=== PATIENT | male | born 1970 | race Caucasian/White ===

== ENCOUNTER → 2020-10-06 00:21 | Outpatient (CLI) | payer OTHER, SELFPAY ==
[2020-10-06 19:36] LABS: SARS-CoV-2 RNA PCR Negative
== END ==
PROVIDERS: PCP Family Medicine; Visit Provider Internal Medicine Gastroenterology
DX: Z20.822 Contact with and (suspected) exposure to COVID-19 (principal)
CPT/HCPCS: C9803; U0003; U0005

== ENCOUNTER 2020-10-09 02:06 | Day surgery (SDC) | payer OTHER, SELFPAY ==
[2020-09-29 11:51] VITALS: BMI 25.2
[2020-10-09 12:21] VITALS: BP 122/94; PULSE 113; RESP 16; TEMP 36.8; O2SAT 98; BMI 23.7
[2020-10-09] MEDS: LACTATED RINGERS 1,000 ML 150 ML IV CONT (12:25)
--- NOTE | 2020-10-09 13:01 | WPDANESEPPF ---
Anes - Initial Pre Proc Eval Procedure: Operation Date: 10/09/20 13:30 Proposed Procedures p Screening Colonoscopy - Ryan Araujo MD Date/Time: 10/09/20 13:01 Surgeon: Ryan Araujo MD Pre Op Diagnosis: neoplasm screening Patient Data Age: 50 Gender: M Height: 5 ft 11 in Weight: 77.1 kg Last Vital Signs Temp 98.3 F 10/09/20 12:21 Pulse 113 H 10/09/20 12:21 Resp 16 10/09/20 12:21 BP 122/94 H 10/09/20 12:21 Pulse Ox 98 10/09/20 12:21 Allergies Allergy/AdvReac Type Severity Reaction Status Date / Time No Known Allergies Allergy Verified 10/09/20 12:18 Home Medications Medication Instructions Recorded Confirmed Type sertraline 25 mg tablet 25 mg PO DAILY #90 tablet 07/20/20 10/09/20 Rx atorvastatin 20 mg tablet 20 mg PO DAILY #90 tablet 09/07/20 10/09/20 Rx Patient hx anesthesia problems: none Family hx anesthesia problems: none PMFSH Past Medical History Medical History (Updated 07/20/20 @ 15:18 by Corin Plata DO) ACL tear (~04/2008) ACL tear (~1996) Surgical History Surgical History H/O vasectomy (~12/2010) Family History Family History Grandparent Family history of glaucoma Family history of coronary artery disease Sibling Hypertension Family history of elevated blood lipids Father Family history of elevated blood lipids, Onset Age: 54 Family history of cardiovascular disease, Onset Age: 54 Acute myocardial infarction, Onset Age: 54 Family history of coronary artery disease, Onset Age: 54 Mother Family history of malignant neoplasm of breast in first degree relative Social History Social History Smoking status: Never smoker Smokeless tobacco user: chewing tobacco Alcohol intake: current Drinks per week: 9 Living arrangements: with family Gender identity (if verbalized by the patient): Male Spiritual care concerns: No Anes - Eval Final PreProcedure Day of Procedure 10/09/20 13:01 Patient weight: normal Heart: regular rate and rhythm Lungs: clear to auscultation Airway: Mallampati scale class II Neurological: alert and oriented Last oral intake: >/= 8 hours ASA classification: II Emergent: no Anesthetic plan: proceed Anesthesia type and monitoring: general GIVS and standard monitoring Informed Consent: The patient's anesthetic plan and its attendant risks and benefits were discussed with the patient/family/POA. Questions were solicited and answers provided to the satisfaction of the patient/family/POA.
--- NOTE | 2020-10-09 13:17 | PM.HPGS ---
History of Present Illness History of Present Illness Consent: Risks, benefits, and alternatives have been discussed and questions answered. Patient agrees to proceed with procedure. Chief complaint: neoplasm screening Narrative: Len Disla is a 50 year old male here for first screening colonoscopy Review of Systems Constitutional: Constitutional: Denies headache(s) and Denies weakness Eyes: Eyes: Denies blurry vision ENT: Reports Normal hearing present, Denies headache(s) and Denies neck pain Cardiovascular: Cardiovascular: Denies chest pain and Denies dyspnea Respiratory: Respiratory: Denies dyspnea Gastrointestinal: Gastrointestinal: Reports no additional gastrointestinal complaints Genitourinary: Genitourinary: Denies dysuria Musculoskeletal: Musculoskeletal: Denies neck pain Integumentary/Breasts: Skin/Breast: Denies dry skin Neurologic: Reports Normal hearing present, Denies headache(s) and Denies weakness Psychiatric: Psychiatric: Denies anxiety Endocrine: Endocrine: Denies change in body appearance Hematologic/Lymphatic: Hematologic/Lymphatic: Denies easy bleeding Allergic/Immunologic: Allergic/Immunologic: Denies urticaria [facility] Past Medical History Medical History (Updated 07/20/20 @ 15:18 by Corin Plata DO) ACL tear (~04/2008) ACL tear (~1996) Surgical History Surgical History H/O vasectomy (~12/2010) Family History Family History Grandparent Family history of glaucoma Family history of coronary artery disease Sibling Hypertension Family history of elevated blood lipids Father Family history of elevated blood lipids, Onset Age: 54 Family history of cardiovascular disease, Onset Age: 54 Acute myocardial infarction, Onset Age: 54 Family history of coronary artery disease, Onset Age: 54 Mother Family history of malignant neoplasm of breast in first degree relative Social History Social History Smoking status: Never smoker Smokeless tobacco user: chewing tobacco Alcohol intake: current Drinks per week: 9 Living arrangements: with family Gender identity (if verbalized by the patient): Male Spiritual care concerns: No Meds Home Medications and Allergies Home Medications Medication Instructions Recorded Confirmed Type sertraline 25 mg tablet 25 mg PO DAILY #90 tablet 07/20/20 10/09/20 Rx atorvastatin 20 mg tablet 20 mg PO DAILY #90 tablet 09/07/20 10/09/20 Rx Allergies Allergy/AdvReac Type Severity Reaction Status Date / Time No Known Allergies Allergy Verified 10/09/20 12:18 Vital Signs Vital Signs - 24 hr 10/09/20 12:21 Temperature 98.3 F Pulse Rate 113 H Respiratory Rate 16 Blood Pressure 122/94 H Pulse Oximetry 98 Exam Const: General: comfortable and no acute distress HENMT: General nose exam: Normal nares present Eyes: General: appearance normal, both eyes and all related structures Neck: Neck: no JVD Resp: Auscultation: clear to auscultation bilaterally Cardio: Rate: regular rate Rhythm: regular rhythm GI: Inspection: non-distended GI Palp: Yes Soft to palpation Skin: General skin exam: normal color Neuro: General: gait normal Speech: normal speech Extrem: General: normal to inspection Psych: Mental Status: mental status grossly normal Assessment and Plan Assessment and plan (1) Screening for colon cancer: Code(s): Z12.11 - Encounter for screening for malignant neoplasm of colon Status: Acute Assessment and Plan: colonoscopy
[2020-10-09 13:40] VITALS: BP 108/61; PULSE 69; RESP 17; O2SAT 98
[2020-10-09 13:50] VITALS: BP 105/62; PULSE 74; RESP 19; O2SAT 100
[2020-10-09 14:00] VITALS: BP 105/60; PULSE 75; RESP 19; O2SAT 100
== END 2020-10-09 14:25 | disposition home or self-care (01) ==
PROVIDERS: PCP Family Medicine; Visit Provider Internal Medicine Gastroenterology
PROC: 0DJD8ZZ Inspection of Lower Intestinal Tract, Via Natural or Artificial Opening Endoscopic (ICD-10-PCS; CPT 45378; principal; 2020-10-09 13:30)
DX: Z12.11 Encounter for screening for malignant neoplasm of colon (principal); K64.8 Other hemorrhoids
CPT/HCPCS: 45378; J2704; J7120

== ENCOUNTER 2023-06-12 08:45 | Outpatient (CLI) | payer OTHER, SELFPAY ==
--- NOTE | 2023-07-01 14:46 | WPDHOMESLEEP ---
Sleep Study - Home Unattended Date of Study: 06/12/23 Ordering Provider: Kayden Mcclure APRN Interpreting Provider: Janessa Schulz, DO Home Sleep Study Type: Watch PAT Height: 1.8 m Weight: 79.379 kg Body Mass Index: 24.4 Neck Circumference (inches): 14.5 [place]: 9 Reason for Sleep Study PSG 08/07/10 ? mild sleep apnea, AHI 11.1.; titration recommended. PAP Titration 08/27/10 ? recommend CPAP 4cmH2O. 175lbs BMI 23.7 Not currently on CPAP. Poor sleep Sleep History The patient is a 52-year-old male with hyperlipidemia and previously diagnosed LIVIER that had a sleep study ordered by the pulmonary group for evaluation of LIVIER. the patient denies awakening from sleep short of breath. He denies awakening at night with heartburn, belching or cough. He frequently snores and is frequently loud enough that others complain. He occasionally has trouble sleeping when he has a cold. He denies waking up gasping for air throughout the night. He occasionally has breathing problems at night observed by himself or others. He occasionally sweats excessively at night. He rarely has heart palpitations or irregular heartbeats during the night. He occasionally falls asleep during the day and frequently falls asleep while driving. He denies sleep paralysis, cataplexy and hypnagogic / hypnopompic hallucinations. He occasionally has trouble at school or work due to sleepiness. He denies feeling afraid of going to sleep. He denies having nightmares. He denies remembering his dreams. He occasionally has thoughts racing through his mind. He denies feeling sad or depressed. He occasionally has anxiety. He occasionally has muscular tension. He denies noticing parts of his body jerk. He denies kicking during the night. He denies having crawling and aching feelings in his legs and denies having leg pain during the night. He denies grinding his teeth during sleep and denies awakening with morning jaw pain. He is occasionally bothered by pain during the day and occasionally awakened by pain during the night. He frequently wakes up feeling stiff in the morning. He rarely wakes up with sore or achy muscles. He occasionally wakes up the pain in the neck, spine and other joints. He goes to bed at 10:00 p.m. on both weekdays and weekends. It takes him 30 minutes to fall asleep. He wakes up 1-5 times throughout the night to use the restroom or change position. He is able to fall back asleep within 5 minutes. He wakes up at 5:45 a.m. on weekdays and at 6:00 a.m. on the weekends. He typically gets 5-6 hours of sleep per night. He will stay in bed for 15 minutes after waking up in the morning. He currently lives with his and 3 children. He denies consuming caffeinated beverages within 2 hours of bedtime. He denies engaging in physical exercise before bedtime. He will watch television before falling asleep. He denies taking naps in afternoon or the evening. He consumes 2 caffeinated sodas every morning. He consumes 2 alcoholic beverages per day. He denies tobacco and recreational drug use. [facility] Past Medical History Medical History (Updated 07/01/23 @ 15:35 by Janessa Schulz DO) ACL tear (~04/2008) ACL tear (~1996) Surgical History Surgical History H/O vasectomy (~12/2010) Family History Family History Grandparent Family history of glaucoma Family history of coronary artery disease Sibling Hypertension Family history of elevated blood lipids Father Family history of elevated blood lipids, Onset Age: 54 Family history of cardiovascular disease, Onset Age: 54 Acute myocardial infarction, Onset Age: 54 Family history of coronary artery disease, Onset Age: 54 Mother Family history of malignant neoplasm of breast in first degree relative Social History Social History (Reviewed 07/01/23 @ 15:12 by
[2023-07-01 14:49] VITALS: BMI 24.4
== END 2023-06-17 08:37 | disposition home or self-care (01) ==
PROVIDERS: PCP Family Medicine; Visit Provider Nurse Practitioner Family
DX: R40.0 Somnolence (principal)
CPT/HCPCS: 95800

== ENCOUNTER → 2023-06-18 12:01 | Outpatient (CLI) | payer OTHER, SELFPAY ==
--- NOTE | ~2023-06-18 | XR_ITS ---
Right Shoulder Technique: AP and axillary views were obtained. Clinical History: Pain Findings: No fracture or dislocation is seen. Osseous alignment is anatomic. The glenohumeral and acr omioclavicular joint spaces are preserved. Soft tissues are unremarkable. Impression: Unremarkable right shoulder radiographs. Reviewed, dictated and finalized at [facility]. ROLL REFINER BATCH MIXER Impression: Unremarkable right shoulder radiographs.
--- NOTE | ~2023-06-18 | XR_ITS ---
Left Shoulder Technique: AP and axillary views were obtained. Clinical History: Pain Findings: No fracture or dislocation is seen. Osseous alignment is anatomic. The glenohumeral and acr omioclavicular joint spaces are preserved. Soft tissues are unremarkable. Impression: Unremarkable left shoulder radiographs. Reviewed, dictated and finalized at [facility]. R SYSTEMS ENGINEER Impression: Unremarkable left shoulder radiographs.
== END ==
PROVIDERS: PCP Nurse Practitioner; Visit Provider Nurse Practitioner
DX: M25.511 Pain in right shoulder (principal); M25.512 Pain in left shoulder
CPT/HCPCS: 73030

== ENCOUNTER 2025-03-11 08:32 | Outpatient (CLI) | payer OTHER, SELFPAY ==
--- NOTE | ~2025-03-11 | CT_ITS ---
EXAMINATION: CTA chest abdomen DATE: 03/11/2025 08:57 INDICATION: Thoracic aortic aneurysm without rupture. TECHNIQUE: Computed tomographic angiography (CTA) of the chest and abdomen was performed with 100 mL Omnipaque-350 intravenous contrast. Automated exposure control and iterative reconstruction technique were employed. The dose-length product was 502.07 mGy-cm. Maximum intensity projection 3D-reconstructions of the aorta and other arteries were constructed by the technologist on a separate workstation. COMPARISON: None. FINDINGS: CHEST CTA: The lungs and inferior mild atelectasis. No pleural effusion. The heart size is normal. No pericardial effusion. The aorta measures 4.4 cm at the sinuses of Valsalva, 4.0 cm at the sinotubular junction, 4.2 cm in the mid ascending aorta, 2.8 cm at the aortic isthmus, and 2.5 cm in the mid descending aorta. There is mild chronic anterior wedging of multiple thoracic vertebral bodies. There is mild thoracic spondylosis. ABDOMEN CTA: The liver, gallbladder, spleen, pancreas, adrenal glands, and right kidney are normal. There is cortical thinning of left kidney. There are no dilated loops of bowel. There is mild aortic atherosclerosis. Abdominal aorta is normal in caliber. 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 There is no significant stenosis of celiac axis, the renal arteries, or inferior mesenteric artery. There are no pathologically enlarged lymph nodes. There is no ascites. There is moderate lower lumbar spondylosis. IMPRESSION: 1. Ectasia of ascending aorta measuring 4.4 cm at the sinuses of Valsalva. 2. Moderate stenosis of superior mesenteric artery. Reviewed, dictated and finalized at location E.
--- OUTSIDE RECORDS SUMMARY | 2025-03-11 08:41 | XMS_ITS | Clinical Summary ---
Author Organization [facility] Address [address] [place] [id number] Care Team Providers Care Radar Mechanic Name Role Phone Ness Whitmore NP Primary Care Provider [phone] Allergies No known active allergies Medications atorvastatin (LIPITOR) 20 MG tablet Take 1 tablet (20 mg total) by mouth nightly at bedtime. Active Active Problems Problem Noted Date Diagnosed Date Tinea cruris 06/19/2016 Encounters Date Type Department Care Team Description 02/16/2025 1:14 PM CDT - 02/16/2025 11:59 PM CDT Hospital Encounter [facility] [place] [address] Ness Whitmore NP Discharge Disposition: Home or Self Care (Routine Discharge) 02/16/2025 Travel from Last 3 Months Immunizations Immunization Administration Dates Next Due Flublok (RIV3, Trivalent, 0.5mL) 04/14/2024 Influenza (Generic) 03/15/2019 Influenza Adult (Generic) 04/10/2021,03/09/2018 Tdap (Generic) 09/27/2021 Social History Tobacco Use Types Packs/Day Years Used Date Smoking Tobacco: Never Passive Smoke Exposure: Past Smokeless Tobacco: Current Tobacco Cessation:Counseling Given: No Alcohol Use Standard Drinks/Week Comments Yes 0 (1 standard drink = 0.6 oz pur e alcohol) PHQ-2 Answer Date Recorded Patient Health Questionnaire-2 Score 0 10/26/2024 Sex and Gender Information Value Date Recorded Sex Assigned at Male 02/16/2025 1:10 PM CDT Legal Sex Male 5:29 PM CDT Gender Identity Not on file Sexual Orientation Not on file Last Filed Vital Signs Vital Sign Reading Time Taken Comments Blood Pressure 136/83 10/26/2024 7:07 AM CDT Pulse 77 10/26/2024 7:07 AM CDT Temperature 36.6 C (97.8 F) 10/26/2024 7:07 AM CDT Respiratory Rate 20 10/26/2024 7:07 AM CDT Oxygen Saturation 99% 10/26/2024 7:07 AM CDT Inhaled Oxygen Concentration - - Weight 89.3 kg (196 lb 12.8 oz) 10/26/2024 7:07 AM CDT Height 180.3 cm (5' 11) 10/26/2024 7:07 AM CDT Body Mass Index 27.45 10/26/2024 7:07 AM CDT Plan of Treatment Health Maintenance Due Date Last Done Comments Colorectal Cancer Screening Colonoscopy (10 Years) 1970 Annual Physical 1973 Hepatitis C 1988 Hepatitis B Vaccines (1 of 3 - 19+ 3-dose series) 1989 Pneumococcal Vaccine: 50+ Years (1 of 1 - PCV) 2020 Zoster Vaccines (1 of 2) 2020 COVID-19 Vaccine (3 - 2024- season) 2025 04/10/2021, 07/31/2020 Influenza Adult (#1) 2025 04/14/2024, 04/10/2021, 03/15/2019, Additional history exists DTaP, Tdap and Td Vaccines (3 - Td or Tdap) 09/28/2031 09/27/2021, 03/09/2010 PHQ-2 (Physician [place]) Completed 10/26/2024 Meningococcal B Vaccine Aged Out No l onger eligible based on patient's age to complete this topic Meningococcal Vaccine Aged Out No jose fredo eligible based on patient's age to complete this topic RSV Immunizations Under 20 Months Aged Out No longer eligible based on patient's age to complete this topic Procedures Procedure Name Priority Date/Time Associated Diagnosis Comments CT LUMB SPINE WO CON Routine 02/16/2025 1:43 PM CDT Radiculopathy, lumbar region CT HEART SCREEN CALCIUM SCORE PROMO Routine 02/16/2025 1:42 PM CDT Screening for ischemic heart disease from Last 3 Months Results * CT LUMB SPINE WO CON (02/16/2025 1:43 PM CDT) Anatomical Region Laterality Modality Spine Computed Tomogra phy 03/01/2025 12:1 8 AM CDT Impressions 03/01/2025 12:21 AM CDT IMPRESSION: 1. No acute fracture of the lumbar spine. 2. Mild to moderate multilevel lumbar spondylosis, as described above. Referred By: NESS WHITMORE Interpreted By: Jovan Monique MD, 03/01/2025 12:18 AM Narrative 03/01/2025 12:21 AM CDT [address] [address] EXAMINATION: CT LUMB SPINE WO CON, 03/01/2025 12:18 AM TECHNIQUE: Computed tomographic images of the lumbar spine were obtained without intravenous contrast. Additional coronal and sagittal reformatted images were generated. A dose lowering technique was used for this procedure, which may include, but is not limited to, dose reduction technique, automated exposure control, the use of iterative reconstruction, and ALARA (As Low As Reasonably Achievable) / Image Gently techniques. HISTORY: Lumbar radiculopathy COMPARISON: None available FINDINGS: There are 5 nonrib-bearing lumbar-type vertebral bodies. There is a 0.3 cm of leftward listhesis of L4 on L5. The lumbar vertebral bodies and facets are otherwise well aligned. The lumbar vertebral body heights are preserved. Approximately 18 degrees of levoconvex scoliosis of the lumbar spine extending from the superior endplate of L1 to the inferior endplate of L4. There is intervertebral disc height loss at L2-3, L3-4, L4-5 and L5-S1 with endplate degenerative changes at these levels. No acute fracture nor destructive process of the visualized osseous structures. Mild arteriosclerotic calcification of the abdominal aorta. T12-L1: No significant spinal canal or neural foraminal stenosis. L1-2: No significant spinal canal or neural foraminal stenosis. L2-3: Disc bulge impressing the ventral thecal sac. Mild spinal canal stenosis. Moderate facet hypertrophy. Mild bilateral neural foraminal stenosis. L3-4: Disc bulge with right paracentral disc protrusion impressing the ventral thecal sac. Mild spinal canal stenosis. Moderate facet hypertrophy. Mild bilateral neural foraminal stenosis. L4-5: Disc bulge impressing the ventral thecal sac. No significant spinal canal stenosis. Mild to moderate facet hypertrophy. Mild bilateral neural foraminal stenosis. L5-S1: No significant spinal canal stenosis. Moderate facet hypertrophy. Moderate left neural foraminal stenosis. Mild right neural foraminal stenosis. Procedure Note Jovan Monique MD - 03/01/[address] [address] EXAMINATION: CT LUMB SPINE WO [facility], 03/01/2025 12:18 AM TECHNIQUE: Computed tomographic images of the lumbar spine were obtainedwithout intravenous contrast. Additional coronal and sagittal reformattedimages were generated. A dose lowering technique was used for thisprocedure, which may include, but is not limited to, dose reductiontechnique, automated exposure control, the use of iterativereconstruction, and ALARA (As Low As Reasonably Achievable) / Image Gentlytechniques. HISTORY: Lumbar radiculopathy COMPARISON: None available FINDINGS: There are 5 nonrib-bearing lumbar-type vertebral bodies. Thereis a 0.3 cm of leftward listhesis of L4 on L5. The lumbar vertebralbodies and facets are otherwise well aligned. The lumbar vertebral bodyheights are preserved. Approximately 18 degrees of levoconvex scoliosisof the lumbar spine extending from the superior endplate of L1 to theinferior endplate of L4. There is intervertebral disc height loss atL2-3, L3-4, L4-5 and L5-S1 with endplate degenerative changes at theselevels. No acute fracture nor destructive process of the visualizedosseous structures. Mild arteriosclerotic calcification of the abdominalaorta. T12-L1: No significant spinal canal or neural foraminal stenosis. L1-2: No significant spinal canal or neural foraminal stenosis. L2-3: Disc bulge impressing the ventral thecal sac. Mild spinal canalstenosis. Moderate facet hypertrophy. Mild bilateral neural foraminalstenosis. L3-4: Disc bulge with right paracentral disc protrusion impressing theventral thecal sac. Mild spinal canal stenosis. Moderate facethypertrophy. Mild bilateral neural foraminal stenosis. L4-5: Disc bulge impressing the ventral thecal sac. No significant spinalcanal stenosis. Mild to moderate facet hypertrophy. Mild bilateralneural foraminal stenosis. L5-S1: No significant spinal canal stenosis. Moderate facet hypertrophy.Moderate left neural foraminal stenosis. Mild right neural foraminalstenosis. IMPRESSION: 1. No acute fracture of the lumbar spine. 2. Mild to moderate multilevel lumbar spondylosis, as described above. Referred By: NESS WHITMORE Interpreted By: Jovan Monique MD, 03/01/2025 12:18 AM Ness Whitmore CNC MACHINE PROGRAMMER CT Final Result * CT HEART SCREEN CALCIUM SCORE PROMO (02/16/2025 1:42 PM CDT) Anatomical Region Laterality Modality Chest Computed Tomogra phy 03/01/2025 4:54 PM CDT Impressions 03/01/2025 5:04 PM CDT =====IMPRESSION:===== 1. Total coronary artery calcium score is 0. 2. Incidental finding of aneurysmal ascending thoracic aorta measuring 4.4 cm. Recommend further evaluation with chest CTA to establish baseline for follow-up. Ordered By: NESS WHITMORE Interpreted By: Jovan Jones MD, 03/01/2025 4:54 PM Narrative 03/01/2025 5:04 PM CDT [address] [address] EXAMINATION: Multislice Helical CT Coronary Calcium Scoring EXAM DATE/TIME: 02/16/2025 1:29 PM REASON FOR EXAM: Heart Screening COMPARISON: None. TECHNIQUE: Multislice helical CT images of the proximal coronary arteries with a computer generated calcification score. A dose lowering technique was used for this procedure, which may include, but is not limited to, dose reduction technique, automated exposure control, iterative reconstruction, ALARA (As Low As Reasonably Achievable), or Image Gently techniques. Results: Left main: 0 LAD: 0 Circumflex: 0 Right coronary: 0 Total Score: 0 Comments: Cardiac size is normal. No pericardial effusion. Aneurysmal dilatation of the ascending thoracic aorta measuring 4.4 cm. Mild emphysema calcifications of the distal aortic arch and descending aorta. No adenopathy in the visualized chest. No suspicious pulmonary nodules in the visualized lungs. Calcium score guidelines: Total Score* Calcium Plaque [place] *Risk *Probability of significant CAD 0 No Plaque Very Low Very unlikely 1-10 Minimal Plaque Low Unlikely 11-100 Mild Plaque Moderate Low likelihood of significant stenosis <50% 101-400 Moderate Plaque Moderately High Moderate likelihood of significant stenosis (>50%) Over 400 Extensive Plaque High High likelihood of significant stenosis (>50%) The amount of coronary artery calcification correlates with the severity of coronary atherosclerosis and the probability of future significant event. Calcification is not site specific for stenosis and does not identify non-calcified atherosclerotic plaque, but rather indicates the extent of atherosclerosis in the coronary arteries overall. The score may be used as an indicator for risk factor modification or additional cardiac testing. Significant change in calcium score over time may be indicative of subsequent disease development or useful as a benchmark to assess preventative programs. Procedure Note Jovan Jones MD - 03/01/2025 [facility] [address] [place], [place] [address] EXAMINATION: Multislice Helical CT Coronary Calcium Scoring EXAM DATE/TIME: 02/16/2025 1:29 PM REASON FOR EXAM: Heart Screening COMPARISON: None. TECHNIQUE: Multislice helical CT images of the proximal coronary arterieswith a computer generated calcification score. A dose lowering techniquewas used for this procedure, which may include, but is not limited to,dose reduction technique, automated exposure control, iterativereconstruction, ALARA (As Low As Reasonably Achievable), or Image Gentlytechniques. Results: Left main: 0 LAD: 0 Circumflex: 0 Right coronary: 0 Total Score: 0 Comments: Cardiac size is normal. No pericardial effusion. Aneurysmaldilatation of the ascending thoracic aorta measuring 4.4 cm. Mildemphysema calcifications of the distal aortic arch and descending aorta.No adenopathy in the visualized chest. No suspicious pulmonary nodules inthe visualized lungs. Calcium score guidelines: Total Score* Calcium Plaque [place] *Risk *Probability ofsignificant CAD 0 No Plaque Very LowVery unlikely 1-10 Minimal Plaque LowUnlikely 11-100 Mild Plaque ModerateLow likelihood of significant stenosis <50% 101-400 Moderate Plaque Moderately HighModerate likelihood of significant stenosis (>50%) Over 400 Extensive Plaque HighHigh likelihood of significant stenosis (>50%) The amount of coronary artery calcification correlates with the severityof coronary atherosclerosis and the probability of future significantevent. Calcification is not site specific for stenosis and does not identify non- calcifiedatherosclerotic plaque, but rather indicates the extent of atherosclerosisin the coronary arteries overall. The score may be used as an indicator for risk factor modification oradditional cardiac testing. Significant change in calcium score over timemay be indicative of subsequent disease development or useful as a benchmark to assess preventativeprograms. =====IMPRESSION:===== 1. Total coronary artery calcium score is 0. 2. Incidental finding of aneurysmal ascending thoracic aorta measuring 4.4cm. Recommend further evaluation with chest CTA to establish baseline forfollow-up. Ordered By: NESS WHITMORE Interpreted By: Jovan Jones MD, 03/01/2025 4:54 PM us Ness Whitmore NP CT Final Result from Last 3 Months Insurance [employer] Care Teams Radar Mechanic Relationship Specialty Start Date End Date Ness Whitmore NP [address] [place] [address] PCP - General [facility]IC[facility] 10/26/24
[2025-03-11 08:54] LABS: Estimated Glomerular Filt Rate 45
== END 2025-03-11 08:33 | disposition home or self-care (01) ==
PROVIDERS: PCP Nurse Practitioner; Visit Provider Nurse Practitioner
DX: I77.810 Thoracic aortic ectasia (principal); I77.1 Stricture of artery
CPT/HCPCS: 71275; 74175; Q9967

== ENCOUNTER 2025-04-26 10:41 | Outpatient (CLI) | payer OTHER, SELFPAY | END 2025-04-26 10:42 | disposition home or self-care (01) | LOC: ANHAUDIO 10:42 | PROVIDERS: PCP Nurse Practitioner; Visit Provider Otolaryngology | DX: H90.42 Sensorineural hearing loss, unilateral, left ear, with unrestricted hearing on the contralateral side (principal); H93.13 Tinnitus, bilateral | CPT/HCPCS: 92557; 92567 ==